=== PATIENT | male | born 1975 | race Two or more races ===

== ENCOUNTER 2016-05-17 21:40 | Emergency (ER) | payer BC ==
[~2016-05-17] VITALS: Ht 165.1 cm; Wt 104.1 kg
[~2016-05-17 21:40] MED LIST: FLOMAX0.4 MG PO; KEFLEX500 MG PO; LORTAB 5-325 M1 EACH PO; MIRALAX17 GM PO; NAPROSYN-EC500 MG PO; ZOFRAN ODT4 MG PO
[2016-05-17] MEDS ORDERED: NOVOLOG PE100 UNITS/ SC (23:45)
[2016-05-17] MEDS ORDERED: INSULIN SYRING1 EA30 MC (23:45)
[2016-05-17 23:46] LABS: CHLORIDE 103 mEq/L (99-109); POTASSIUM 3.8 mEq/L (3.7-5.4); SODIUM 138 mEq/L (136-147)
[2016-05-17] MEDS ORDERED: LEVEMIR100 UNIT/2 SC (23:46)
[2016-05-17] MEDS ORDERED: [UNRECOGNIZED DRUG - SUPPLY] MC (23:46)
[2016-05-17] MEDS ORDERED: ALLOPURINOL100 MG PO (23:47)
[2016-05-17] MEDS ORDERED: VIRTRATE-K ORA473 ML PO (23:47)
[2016-05-17 23:48] LABS: GLUCOSE 118 mg/dL (70-99)
[2016-05-17] MEDS ORDERED: ATORVASTATIN CA80 MG PO (23:48)
[2016-05-17] MEDS ORDERED: METFORMIN HCL500 M1 PO (23:48)
[2016-05-17] MEDS ORDERED: VITAMIN D31000 UNI2 PO (23:49)
[2016-05-17 23:50] LABS: ANION GAP 14 MEQ/L (2-14); TOTAL BILIRUBIN 1.1 mg/dL (0.0-1.0)
[2016-05-17 23:52] LABS: ALKALINE PHOSPHATASE 84 IU/L (3-129); GFR ESTIMATE (CALCULATED) > 59 mL/min/
[2016-05-17 23:53] LABS: UREA NITROGEN (BUN) 12 mg/dL (9-23)
[2016-05-17 23:55] LABS: LIPASE 22 U/L (1.0-51.0)
[2016-05-18 00:20] LABS: ADD MIUA? YES; BILIRUBIN NEGATIVE; BLOOD MODERATE; COLOR YELLOW ((YELLOW)); GLUCOSE (STRIP) NEGATIVE; KETONES NEGATIVE; LEUKOCYTES NEGATIVE; NITRITE NEGATIVE; PH, URINE 5.5 (5-8); PROTEIN (STRIP) NEGATIVE; SPECIFIC GRAVITY 1.022 (1.000-1.030); UROBILINOGEN 0.2 MG/DL (0.2-1.0)
[2016-05-18 00:31] LABS: INFLUENZA A VIRAL ANTIGEN NEGATIVE; INFLUENZA B VIRAL ANTIGEN NEGATIVE
[2016-05-18 00:33] LABS: HEMATOCRIT 43.3 % (38.0-50.0); MCH 27.1 PG (29.0-34.0); MCHC 34.2 G/DL (30.0-36.0); MCV 79.2 FL (86-99); MEAN PLAT.VOLUME 10.1 uM^3 (9.0-12.4); PLATELET COUNT 335 K/uL (156-360); RBC DIS.WIDTH-CV 14.9 % (11.8-14.6); RBC DIS.WIDTH-SD 41.9 % (39-53); RED BLOOD COUNT 5.47 M/uL (4.00-5.50); WHITE BLOOD COUNT 12.3 K/uL (4.1-10.2)
[2016-05-18 01:55] LABS: EPITHELIAL CELLS RARE; RED BLOOD CELLS 0-5 /HPF (0-5); WHITE BLOOD CELLS 0-5 /HPF (0-5)
[2016-05-18 01:56] LABS: BACTERIA 1+; CASTS NONE SEEN /LPF; MUCUS NONE SEEN; UCUL ADDED? NO
[2016-05-18 01:58] LABS: CRYSTALS PRESENT; URIC ACID CRYSTALS FEW
[2016-05-18] MEDS ORDERED: CIPRO500 MG PO (02:52)
[2016-05-18] MEDS ORDERED: TYLENOL WITH C1 EACH PO (02:53)
[2016-05-18 03:19] VITALS: BP 122/78
== END 2016-05-18 03:27 | disposition home or self-care (01) ==
LOC: RME 21:40 → EME 21:40 → RME 05-18 03:27
PROVIDERS: Physician Assistant
DX: E11.65 Type 2 diabetes mellitus with hyperglycemia (principal); R50.9 Fever, unspecified; R10.9 Unspecified abdominal pain; E78.5 Hyperlipidemia, unspecified; Z87.442 Personal history of urinary calculi; Z88.6 Allergy status to analgesic agent
CPT/HCPCS: 74177; 80053; 81003; 83605; 83690; 85027; 87040; 87502; 99281; 99285; J7030

== ENCOUNTER 2016-05-25 03:12 | Emergency (ER) | payer OTHER, BC ==
[~2016-05-25] VITALS: Ht 165.1 cm; Wt 103.3 kg
[~2016-05-25 03:12] MED LIST changes: +ALLOPURINOL100 MG PO; +ATORVASTATIN CA80 MG PO; +CIPRO500 MG PO; +INSULIN SYRING1 EA30 MC; +LEVEMIR100 UNIT/2 SC; +METFORMIN HCL500 M1 PO; +NOVOLOG PE100 UNITS/ SC; +TYLENOL WITH C1 EACH PO; +VIRTRATE-K ORA473 ML PO; +VITAMIN D31000 UNI2 PO; +[UNRECOGNIZED DRUG - SUPPLY] MC
[2016-05-25 03:40] LABS: ADD MIUA? NO; BILIRUBIN NEGATIVE; BLOOD NEGATIVE; COLOR YELLOW ((YELLOW)); GLUCOSE (STRIP) >=1000; KETONES TRACE; LEUKOCYTES NEGATIVE; NITRITE NEGATIVE; PROTEIN (STRIP) NEGATIVE; SPECIFIC GRAVITY 1.036 (1.000-1.030); UCUL ADDED? NO; UROBILINOGEN 0.2 MG/DL (0.2-1.0)
[2016-05-25 03:50] LABS: HEMATOCRIT 39.2 % (38.0-50.0); MCH 27.3 PG (29.0-34.0); MCHC 33.7 G/DL (30.0-36.0); MCV 81.2 FL (86-99); MEAN PLAT.VOLUME 9.6 uM^3 (9.0-12.4); PLATELET COUNT 284 K/uL (156-360); RBC DIS.WIDTH-CV 14.4 % (11.8-14.6); RBC DIS.WIDTH-SD 42.5 % (39-53); RED BLOOD COUNT 4.83 M/uL (4.00-5.50); WHITE BLOOD COUNT 11.1 K/uL (4.1-10.2)
[2016-05-25 04:01] LABS: CHLORIDE 106 mEq/L (99-109); POTASSIUM 3.8 mEq/L (3.7-5.4); SODIUM 140 mEq/L (136-147)
[2016-05-25 04:03] LABS: GLUCOSE 301 mg/dL (70-99)
[2016-05-25 04:04] LABS: ANION GAP 8 MEQ/L (2-14)
[2016-05-25 04:05] LABS: TOTAL BILIRUBIN 0.5 mg/dL (0.0-1.0)
[2016-05-25 04:06] LABS: ALKALINE PHOSPHATASE 120 IU/L (3-129)
[2016-05-25 04:07] LABS: GFR ESTIMATE (CALCULATED) 56 mL/min/
[2016-05-25 04:08] LABS: UREA NITROGEN (BUN) 14 mg/dL (9-23)
[2016-05-25 06:03] LABS: CREATINE KINASE 126 IU/L (1-294); LIPASE 30 U/L (1.0-51.0)
[2016-05-25 08:01] LABS: ANION GAP 7 MEQ/L (2-14); CHLORIDE 108 MEQ/L (99-109); POTASSIUM 4.2 MEQ/L (3.7-5.4); SAMPLE HEMOLYSIS CHECK 0; SAMPLE ICTERIC CHECK 0; SAMPLE LIPEMIA CHECK 0; SODIUM 142 MEQ/L (136-147)
[2016-05-25] MEDS ORDERED: PERCOCET 5/31 TABLET PO (08:05)
[2016-05-25 08:07] LABS: GFR ESTIMATE (CALCULATED) > 59 mL/min/; UREA NITROGEN (BUN) 12 mg/dL (9-23)
[2016-05-25 08:09] LABS: GLUCOSE 145 mg/dL (70-99)
[2016-05-25 08:39] VITALS: BP 108/64
== END 2016-05-25 08:41 | disposition home or self-care (01) ==
LOC: EME 03:12
PROVIDERS: Emergency Medicine
DX: R10.9 Unspecified abdominal pain (principal); E86.0 Dehydration; E11.65 Type 2 diabetes mellitus with hyperglycemia; Z87.442 Personal history of urinary calculi; R11.0 Nausea; E78.5 Hyperlipidemia, unspecified; Z79.4 Long term (current) use of insulin
CPT/HCPCS: 80048 91; 80053; 81003; 82550; 83690; 85027; 99281; 99284; J2270; J2405; J7030